=== PATIENT | male | born 1945 | race Caucasian/White ===

== ENCOUNTER 2016-06-24 07:54 | Day surgery (SDC) | payer BC ==
[~2016-06-24 07:54] MED LIST: ACETAMINOPHEN 1000MG/100 ML PREMIX IV ONE
[2016-06-24 08:39] LABS: ANION GAP 12.7 (7-16); BLOOD UREA NITROGEN 23 mg/dL (9-20); CARBON DIOXIDE 27.3 mmol/L (22-30); CREATININE 0.8 mg/dL (0.66-1.25); EST GLOMERULAR FILTRATION RATE > 60 ml/min; GLUCOSE,RANDOM 108 mg/dL (70-110)
[2016-06-24] MEDS ORDERED: HYDROCODONE/APAP 7.5/325MG TABLET PO ONE (13:32)
[2016-06-24] MEDS ORDERED: BUPIVACAINE 0.25% W/EPI MPF 30ML VIAL IVP ONE (13:32)
[2016-06-24] MEDS ORDERED: LIDOCAINE 2% MDV (20MG/ML) 20ML VIAL IV ONE (13:42)
[2016-06-24] MEDS ORDERED: KETOROLAC 30 MG/ML VIAL IVP ONE (13:42)
[2016-06-24] MEDS ORDERED: PROPOFOL 10 MG/ML VIAL IV ONE (13:42)
[2016-06-24] MEDS ORDERED: DESFLURANE 240 ML BTL INH ONE (13:42)
--- NOTE | 2016-06-24 16:56 | Operative Note ---
DATE OF SURGERY: 06/24/16 SURGEON: GUSTAVO GOULD D.O. REFERRING PHYSICIAN: SIVAKUMAR DON D.O. PREOPERATIVE DIAGNOSIS: CHONDROMALACIA OF THE TROCHLEA, LEFT KNEE. OPERATIVE PROCEDURE: ARTHROSCOPIC CHONDROPLASTY OF THE TROCHLEA, LEFT KNEE. DESCRIPTION: This 71-year-old male was taken to the Operating Room and placed in the supine position on the operating room table. A general anesthetic was administered and the left lower extremity was elevated, exsanguinated, and the tourniquet was inflated to 300 mmHg. Arthroscopic knee-cesar applied. The left knee was prepped with Hibiclens and draped in the usual sterile fashion. An inferolateral portal was established with a 4 mm arthroscope and initial evaluation of the joint demonstrated a relatively normal appearance of the patella, however, there was extensive synovitis in the suprapatellar pouch and the fat pad and some debridement of this was performed. Excellent visualization then of the trochlea was seen and the trochlea demonstrated a grade 4 lesion. This was a significant size lesion of about a 1.5 cm x 2 to 2.5 cm in the center of the trochlea. As mentioned, a grade 4 lesion was noted here. The periphery of the lesion demonstrated loose fragment at articular cartilage and chondroplasty was performed to stabilize this cartilage. The medial and lateral gutters were examined and found to be normal. The medial compartment was entered. Probing the medial meniscus did not reveal any disruption of the medial meniscus. The articular cartilage of the medial compartment was normal. The intercondylar notch was examined and found to be normal. The lateral compartment was entered and the articular cartilage of the lateral compartment and lateral meniscus demonstrated essentially normal findings. The joint was then copiously irrigated and suctioned. Everything was re-evaluated and no additional findings were present. The joint was suctioned. The instruments were removed. The portal was infiltrated with 0.25% Marcaine with Epinephrine, sterile dressings applied, tourniquet and knee cesar were released , and the patient was taken to the Recovery Room in satisfactory condition. GROSS PATHOLOGY: This patient demonstrated a grade 4 lesion of about 1.5 x 2.5 cm in the center of the trochlea with minimal degenerative change of the patella being identified. No meniscal tear was noted. Gustavo Gould D.O. Date & Time cc: Sivakumar Don D.O. JOB NUMBER: [id number] MTDD
== END 2016-06-24 11:11 | disposition home or self-care (01) ==
LOC: SUR 07:54
PROVIDERS: ATTEND Orthopaedic Surgery
DX: M94.262 Chondromalacia, left knee (principal); I10 Essential (primary) hypertension; I48.91 Unspecified atrial fibrillation
CPT/HCPCS: 80048; 29877; 01400; J1885

== ENCOUNTER 2016-08-02 14:20 | Emergency (ER) | payer BC ==
--- NOTE | 2016-08-02 16:31 | Emergency Department Record ---
History of Present Illness - General Chief complaint: Extremity Problem Stated complaint: RIGHT HAND INJURY Time Seen by Provider: 08/02/16 15:07 Source: Patient Mode of Arrival: Ambulatory Limitations: No limitations - History of Present Illness Initial comments: a bungee cord snapped back and hit pt on back of r hand. Complaint: Extremity pain, Extremity swelling Onset/Timin -: Hour(s) Location: Right, Hand Severity scale (1-10): 5 Quality: Sharp Consistency: Intermittent Improves with: Nothing Worsens with: Exertion, Palpation Associated Symptoms: Denies other symptoms - Related Data Home Medications Medication Instructions Recorded Confirmed Last Taken Tamsulosin HCl 1 tab PO DAILY 07/28/15 08/02/16 1 Day Ago Aspirin [Aspirin EC] 81 mg PO DAILY 08/02/16 08/02/16 Unknown Metoprolol Tartrate [Metoprolol 25 mg PO DAILY 08/02/16 08/02/16 Unknown Tartrate] Allergies Allergy/AdvReac Type Severity Reaction Status Date / Time No Known Drug Allergies Allergy Verified 07/30/15 09:17 Travel Screening - Travel/Exposure Within Last 30 Days Have you traveled within the last 30 days?: No Review of Systems Reviewed: No additional complaints except as noted below Constitutional: Reports: As per HPI. Denies: Chills, Fever, Malaise, Night sweats, Weakness, Weight change Eyes: Reports: As per HPI. Denies: Eye discharge, Eye pain, Photophobia, Vision change ENT: Reports: As per HPI. Denies: Congestion, Dental pain, Ear pain, Epistaxis , Hearing loss, Throat pain Respiratory: Reports: As per HPI. Denies: Cough, Dyspnea, Hemoptysis, Stridor, Wheezes Cardiovascular: Reports: As per HPI. Denies: Arrhythmia, Chest pain, Dyspnea on exertion, Edema, Murmurs, Orthopnea, Palpitations, Paroxysmal nocturnal dyspnea, Rheumatic Fever, Syncope Endocrine: Reports: As per HPI. Denies: Fatigue, Heat or cold intolerance, Polydipsia, Polyuria Gastrointestinal: Reports: As per HPI. Denies: Abdominal pain, Constipation, Diarrhea, Hematemesis, Hematochezia, Melena, Nausea, Vomiting Genitourinary: Reports: As per HPI. Denies: Dysuria, Frequency, Hematuria, Incontinence, Retention, Testicular pain, Testicular mass, Urgency Musculoskeletal: Reports: As per HPI. Denies: Arthralgia, Back pain, Gout, Joint swelling, Myalgia, Neck pain Skin: Reports: As per HPI. Denies: Bruising, Change in color, Change in hair/ nails, Lesions, Pruritus, Rash Neurological: Reports: As per HPI. Denies: Abnormal gait, Confusion, Headache, Numbness, Paresthesias, Seizure, Tingling, Tremors, Vertigo, Weakness Psychiatric: Reports: As per HPI. Denies: Anxiety, Auditory hallucinations, Depression, Homicidal thoughts, Suicidal thoughts, Visual hallucinations Hematological/Lymphatic: Reports: As per HPI. Denies: Anemia, Blood Clots, Easy bleeding, Easy bruising, Swollen glands Past Medical History - SOCIAL HISTORY Smoking Status: Former smoker Alcohol Use: None Drug Use: None - RESPIRATORY Hx Respiratory Disorders: Yes Hx Pneumonia: Yes (walking pneumonia 07/24) - CARDIOVASCULAR Hx Cardio Disorders: Yes Hx Abnormal EKG: Yes (Hx of Atrial flutter, treated with metoprolol. Sinus farzaneh now) Hx Hypertension: Yes (variable, on metropolol) Hx Irregular Heartbeat: Yes (07/24-dizzy,disoriented at Dr. Don's office) Hx Palpitations: Yes (06/18/16-felt flutter in heart. contributes to low carb diet) Comment:: stress test with previous syncopal event 4 years ago contributed to Ann - NEURO Hx Neuro Disorders: Yes Hx Dizziness: Yes (Occasional dizzy spell-? R/T flutter, lasts about 5 secs) - GI Hx GI Disorders: Yes Hx of Polyps: Yes (benign x3) - Hx Genitourinary Disorders: Yes Hx Prostate Problems: Yes (BPH on flomax) - ENDOCRINE Hx Endocrine Disorders: No - MUSCULOSKELETAL Hx Musculoskeletal Disorders: Yes Hx Arthritis: Yes (hands,shoulders) - PSYCH Hx Psych Problems: No - HEMATOLOGY/ONCOLOGY Hx Hematology/Oncology Disorders: No Family Medical History Any Significant Family History?: Yes Hx Cancer: Father, Brother/Sister Hx Diabetes: Brother/Sister Hx Heart Disease: Father, Mother, Brother/Sister Hx Stroke: Father Physical Exam - General General Appearance: Alert, Oriented x3, Cooperative, No acute distress - Head Head exam: Normal inspection - Eye Eye exam: Normal appearance, PERRL, EOMI Pupils: Normal accommodation - ENT ENT exam: Normal exam, Mucous membranes moist, Normal external ear exam, Normal orophraynx Ear exam: Normal external inspection. negative: External canal tenderness Nasal Exam: Normal inspection. negative: Discharge, Sinus tenderness Mouth exam: Normal external inspection, Tongue normal Teeth exam: Normal inspection. negative: Dental caries Throat exam: Normal inspection. negative: Tonsillar erythema, Tonsillar exudate - Neck Neck exam: Normal inspection, Full ROM. negative: Tenderness - Respiratory Respiratory exam: Normal lung sounds bilaterally. negative: Respiratory distress - Cardiovascular Cardiovascular Exam: Regular rate, Normal rhythm, Normal heart sounds - GI/Abdominal GI/Abdominal exam: Soft, Normal bowel sounds. negative: Tenderness - Rectal Rectal exam: Deferred - exam: Deferred - Extremities Extremities exam: Full ROM, Normal capillary refill, Tenderness Image of Hand: 1 - swelling, hematoma, abrasion, tenderness - Back Back exam: Reports: Normal inspection, Full ROM. Denies: Muscle spasm, Rash noted, Tenderness - Neurological Neurological exam: Alert, CN II-XII intact, Normal gait, Oriented X3 - Psychiatric Psychiatric exam: Normal affect, Normal mood - Skin Skin exam: Dry, Intact, Normal color, Warm Course Vital Signs 08/02/16 14:59 Temperature 97.6 F Pulse Rate 55 L Respiratory 20 Rate Blood Pressure 149/76 Pulse Ox 96 Disposition Disposition: Discharge Clinical Impression: Traumatic hematoma of hand Qualifiers: Encounter type: initial encounter Laterality: right Qualified Code(s): S60.221A - Contusion of right hand, initial encounter Disposition: Home, Self-Care Condition: (1) Good Instructions: Contusion in Adults (ED) Additional Instructions: ice and elevation. follow up with family doctor. return sooner if worse Forms: Patient Portal Access
[2016-08-02] MEDS ORDERED: TETANUS AND DIPHTHERIA PF 0.5 ML SYR IM ONE (16:50)
--- NOTE | 2016-08-06 13:56 | RADIOLOGY REPORT ---
EXAM: RIGHT HAND, THREE VIEWS HISTORY: PATIENT WAS HIT WITH HOOK ON BUNGEE CORD. PAIN IN THE MID FOURTH TO FIFTH METACARPALS. TECHNIQUE: Three views of the right hand are provided along with the comparison study dated 07/17/08. FINDINGS: There is a contour deformity of the fifth metacarpal which is consistent with the healed previously fractured distal fifth metacarpal. No new , acute fractures or dislocations of the right hand are identified. Soft tissue swelling is noted at the dorsum of the right hand. IMPRESSION: SOFT TISSUE SWELLING IS NOTED AT THE DORSUM OF THE RIGHT HAND WITHOUT RADIOGRAPHIC EVIDENCE OF AN ACUTE PROCESS INVOLVING THE RIGHT HAND. JOB NUMBER: [id number] MTDD
== END 2016-08-02 16:45 | disposition home or self-care (01) ==
LOC: ER 14:20
DX: S60.221A Contusion of right hand, initial encounter (principal); W22.8XXA Striking against or struck by other objects, initial encounter
CPT/HCPCS: 96372; 99283

== ENCOUNTER 2019-06-01 05:15 | Emergency (ER) | payer MEDICARE, BC ==
[2019-06-01] MEDS ORDERED: ASPIRIN 81 MG CHEWABLE TABLET PO ONE (05:33)
[2019-06-01] MEDS ORDERED: NITROGLYCERIN 0.4MG SL TABLET #25 BTL SL PRN (05:33)
[2019-06-01] MEDS ORDERED: DILTIAZEM 25MG/5ML VIAL IV ONE (05:36)
[2019-06-01 05:42] LABS: ABSOLUTE NEUTROPHIL COUNT 2.94; BASO % 0.5 % (0-6); EOS % 2.2 % (0-6); GRAN % 50.1 % (47-80); HEMOGLOBIN 14.8 gm/dl (14.0-18.0); LYMPH % 36.6 % (16-45); MEAN CELL VOLUME 91.1 fl (81-97); MEAN CORPUSCULAR HEMOGLOBIN 30.6 pg (27-33); MEAN CORPUSCULAR HGB CONC 33.6 g/dl (32-36); MEAN PLATELET VOLUME 10.9 fl (7.4-10.4); MONO % 10.6 % (0-9); PLATELET COUNT 251 K/uL (130-400); RED BLOOD COUNT 4.83 M/uL (4.40-5.70); RED CELL DISTRIBUTION WIDTH 13.7 % (11.5-14.5); WHITE BLOOD COUNT W/O DIFF 5.9 K/uL (4.2-12.2)
[2019-06-01 05:53] LABS: BLOOD UREA NITROGEN 25 mg/dL (8-23); EST GLOMERULAR FILTRATION RATE > 60 mL/min
[2019-06-01 05:56] LABS: GLUCOSE,RANDOM 202 mg/dL (74-109)
[2019-06-01 05:59] LABS: CREATINE PHOSPHOKINASE 102 U/L (39-308)
--- NOTE | 2019-06-01 06:10 | Emergency Department Record ---
History of Present Illness - General Chief Complaint: Arrythmia/Palpitations Stated Complaint: A FLUTTER Time Seen by Provider: 06/01/19 05:23 Source: Patient Mode of Arrival: Wheelchair Limitations: No limitations - History of Present Illness Initial Comments: pt has been feeling like he is in a flutter for 12 hours. he also has mild chest pressure. he gets these spells periodically but they usually resolve. he is scheduled for an ablation on 06/14. MD Complaint: Atrial fibrillation Onset/Timin -: Days(s) Arrythmia History: History of electrical cardioversion, On anti-coagulants, Other Associated Symptoms: Chest pain, Shortness of breath - Related Data Home Medications Medication Instructions Recorded Confirmed Last Taken Apixaban [Eliquis] 5 mg PO DAILY 06/01/19 06/01/19 05/31/19 Lisinopril [Zestril] 5 mg PO DAILY 06/01/19 06/01/19 05/31/19 Previous Rx's Medication Instructions Recorded Metoprolol Succinate [Toprol Xl] 25 mg PO DAILY #20 tab.er.24h 06/01/19 Allergies Allergy/AdvReac Type Severity Reaction Status Date / Time No Known Drug Allergies Allergy Verified 06/01/19 05:21 Travel Screening - Travel/Exposure Within Last 30 Days Have you traveled within the last 30 days?: No - Travel/Exposure Within Last Year Have you traveled outside the [place] in the last year?: No - Additonal Travel Details Have you been exposed to anyone with a communicable illness?: No - Travel Symptoms Symptom Screening: None Review of Systems Reviewed: No additional complaints except as noted below Constitutional: Reports: As per HPI. Denies: Chills, Fever, Malaise, Night sweats, Weakness, Weight change Eyes: Reports: As per HPI. Denies: Eye discharge, Eye pain, Photophobia, Vision change ENT: Reports: As per HPI. Denies: Congestion, Dental pain, Ear pain, Epistaxis, Hearing loss, Throat pain Respiratory: Reports: As per HPI. Denies: Cough, Dyspnea, Hemoptysis, Stridor, Wheezes Cardiovascular: Reports: As per HPI, Chest pain, Palpitations. Denies: Arrhythmia, Dyspnea on exertion, Edema, Murmurs, Orthopnea, Paroxysmal nocturnal dyspnea, Rheumatic Fever, Syncope Endocrine: Reports: As per HPI. Denies: Fatigue, Heat or cold intolerance, Polydipsia, Polyuria Gastrointestinal: Reports: As per HPI. Denies: Abdominal pain, Constipation, Diarrhea, Hematemesis, Hematochezia, Melena, Nausea, Vomiting Genitourinary: Reports: As per HPI. Denies: Dysuria, Frequency, Hematuria, Incontinence, Retention, Testicular pain, Testicular mass, Urgency Musculoskeletal: Reports: As per HPI. Denies: Arthralgia, Back pain, Gout, Joint swelling, Myalgia, Neck pain Skin: Reports: As per HPI. Denies: Bruising, Change in color, Change in hair/nails, Lesions, Pruritus, Rash Neurological: Reports: As per HPI. Denies: Abnormal gait, Confusion, Headache, Numbness, Paresthesias, Seizure, Tingling, Tremors, Vertigo, Weakness Psychiatric: Reports: As per HPI. Denies: Anxiety, Auditory hallucinations, Depression, Homicidal thoughts, Suicidal thoughts, Visual hallucinations Hematological/Lymphatic: Reports: As per HPI. Denies: Anemia, Blood Clots, Easy bleeding, Easy bruising, Swollen glands Past Medical History - SOCIAL HISTORY Smoking Status: Former smoker Alcohol Use: Rare Drug Use: None - RESPIRATORY Hx Respiratory Disorders: Yes Hx Pneumonia: Yes (walking pneumonia 07/24) - CARDIOVASCULAR Hx Cardio Disorders: Yes Hx Abnormal EKG: Yes (Hx of Atrial flutter, treated with metoprolol. Sinus farzaneh now) Hx Hypertension: Yes (variable) Hx Irregular Heartbeat: Yes (07/24-dizzy,disoriented at Dr. Don's office) Hx Palpitations: Yes (06/18/16-felt flutter in heart. contributes to low carb diet) Comment:: stress test with previous syncopal event 4 years ago contributed to Ann - NEURO Hx Neuro Disorders: Yes Hx Dizziness: Yes (Occasional dizzy spell-? R/T flutter, lasts about 5 secs) - GI Hx GI Disorders: Yes Hx of Polyps: Yes (benign x3) - Hx Genitourinary Disorders: Yes Hx Prostate Problems: Yes (BPH on flomax) - ENDOCRINE Hx Endocrine Disorders: No - MUSCULOSKELETAL Hx Musculoskeletal Disorders: Yes Hx Arthritis: Yes (hands,shoulders) - PSYCH Hx Psych Problems: No - HEMATOLOGY/ONCOLOGY Hx Hematology/Oncology Disorders: No Family Medical History Any Significant Family History?: Yes Hx Cancer: Father, Brother/Sister Hx Diabetes: Brother/Sister Hx Heart Disease: Father, Mother, Brother/Sister Hx Stroke: Father Physical Exam - General General Appearance: Alert, Oriented x3, Cooperative, No acute distress - Head Head exam: Normal inspection - Eye Eye exam: Normal appearance, PERRL, EOMI Pupils: Normal accommodation - ENT ENT exam: Normal exam, Mucous membranes moist, Normal external ear exam, Normal orophraynx, TM's normal bilaterally Ear exam: Normal external inspection. negative: External canal tenderness Nasal Exam: Normal inspection. negative: Discharge, Sinus tenderness Mouth exam: Normal external inspection, Tongue normal Teeth exam: Normal inspection. negative: Dental caries Throat exam: Normal inspection. negative: Tonsillar erythema, Tonsillar exudate - Neck Neck exam: Normal inspection, Full ROM. negative: Tenderness - Respiratory Respiratory exam: Normal lung sounds bilaterally. negative: Respiratory distress - Cardiovascular Cardiovascular Exam: Normal heart sounds, Irregular rhythm, Tachycardia - GI/Abdominal GI/Abdominal exam: Soft, Normal bowel sounds. negative: Tenderness - Rectal Rectal exam: Deferred - exam: Deferred - Extremities Extremities exam: Normal inspection, Full ROM, Normal capillary refill. ne gative: Tenderness - Back Back exam: Reports: Normal inspection, Full ROM. Denies: Muscle spasm, Rash noted, Tenderness - Neurological Neurological exam: Alert, CN II-XII intact, Normal gait, Oriented X3 - Psychiatric Psychiatric exam: Normal affect, Normal mood - Skin Skin exam: Dry, Intact, Normal color, Warm Course Vital Signs 06/01/19 05:20 Temperature 97.4 F L Pulse Rate 113 H Respiratory 14 Rate Blood Pressure 121/78 Pulse Ox 98 - Reevaluation(s) Reevaluation #1: 06/01/19 06:56 pt remains in afib but at a rate of 70-90, pressure 102/. pts labs are negative, after 12 hours. pt d/w dr serrano who asked pt to be started on toprol xl 25mg and be sent home to follow up with ablation on 06/14 Medical Decision Making - Lab Data Result diagrams: 06/01/19 05:15 06/01/19 05:15 Lab Results 06/01/19 06/01/19 06/01/19 Range/Units 05:15 05:15 05:15 WBC 5.9 (4.2-12.2) K/uL RBC 4.83 (4.40-5.70) M/uL Hgb 14.8 (14.0-18.0) gm/dl Hct 44.0 (42.0-52.0) % MCV 91.1 (81-97) fl MCH 30.6 (27-33) pg MCHC 33.6 (32-36) g/dl RDW 13.7 (11.5-14.5) % Plt Count 251 (130-400) K/uL MPV 10.9 H (7.4-10.4) fl Gran % 50.1 (47-80) % Lymphocytes % 36.6 (16-45) % Monocytes % 10.6 H (0-9) % Eosinophils % 2.2 (0-6) % Basophils % 0.5 (0-6) % Absolute Neutrophils 2.94 D-Dimer 0.20 (0-0.59) mg/L FEU Sodium 140 (136-145) mmol/L Potassium 3.7 (3.4-4.5) mmol/L Chloride 103 (98-107) mmol/L Carbon Dioxide 23.0 (22-29) mmol/L Anion Gap 14.0 (7-16) BUN 25 H (8-23) mg/dL Creatinine 1.0 (0.7-1.2) mg/dL Estimated GFR > 60 mL/min Random Glucose 202 H (74-109) mg/dL Calcium 9.6 (8.8-10.2) mg/dL Creatine Kinase 102 (39-308) U/L Troponin T < 0.010 (0-0.010) ng/mL Disposition Disposition: Discharge Clinical Impression: Atrial fibrillation Qualifiers: Atrial fibrillation type: paroxysmal Qualified Code(s): I48.0 - Paroxysmal atrial fibrillation Disposition: Home, Self-Care Condition: (1) Good Instructions: A-fib (Atrial Fibrillation) (ED) Additional Instructions: follow up with cardiolgist. return sooner if worse. Prescriptions: Metoprolol Succinate [Toprol Xl] 25 mg PO DAILY #20 tab.er.24h Forms: Patient Portal Access, Return to Work/School Quality - Quality Measures Quality Measures: N/A - Blood Pressure Screening Does Patient Have Any of the Following: No Blood Pressure Classification: Pre-Hypertensive BP Reading Systolic Measurement: 121 Diastolic Measurement: 78 Screening for High Blood Pressure: < Pre-Hypertensive BP, F/U Documented > [G8950] Pre-Hypertensive Follow-up Interventions: Follow-up with rescreen every year.
--- NOTE | 2019-06-01 06:46 | RADIOLOGY REPORT ---
EXAMINATION: Two View Chest Radiographs EXAM DATE: 06/01/2019 6:30 AM TECHNIQUE: Frontal and lateral views INDICATION: cp COMPARISON: 10/07/2011 ENCOUNTER: Not applicable FINDINGS: Cardiomediastinal structures stable. No pulmonary consolidation or infiltration. No pneumothorax or p leural effusion. Apparent new nodular densities at both bases may represent granuloma. Follow-up stud y recommended. Degenerative change thoracic spine. IMPRESSION: Apparent new bibasilar nodules may represent granuloma. Follow-up study recommended NOTE: There is a follow-up recommendation in this report. Dictated by: Raul Ellis MD on 06/01/2019 6:42 AM. .
[2019-06-01] MEDS ORDERED: METOPROLOL SUCC 50 MG TABLET PO ONE (06:51)
== END 2019-06-01 07:22 | disposition home or self-care (01) ==
LOC: ER 05:15
DX: I48.0 Paroxysmal atrial fibrillation (principal); I10 Essential (primary) hypertension; Z87.891 Personal history of nicotine dependence
CPT/HCPCS: 71046; 80048; 82550; 84484; 85025; 85379; 93005; 93010; 96374; 99284